=== PATIENT | male | born 1940 | race Caucasian/White ===

== ENCOUNTER → 2024-01-29 10:20 | Outpatient (REF) | payer MEDICARE, SELFPAY ==
[2024-01-29 10:55] LABS: % Basophils 0.8 % (0-2); % Eosinophils 3.5 % (0-6); % Immature Granulocytes 0.2 % (0-0.5); % Monocytes 8.3 % (1.7-9.3); % Neutrophils 50.2 % (42.2-75.2); Absolute Basophils 0.1 10^3/uL (0-0.2); Absolute Eosinophils 0.2 10^3/uL (0-0.7); Absolute Lymphocytes 2.4 10^3/uL (1.2-3.4); Absolute Monocytes 0.5 10^3/uL (0.1-0.6); Absolute Neutrophils 3.2 10^3/uL (1.4-6.5); Hemoglobin 14.8 g/dL (13.0-18.0); Mean Corp Hgb Conc. 32.9 g/dL (33.0-37.0); Mean Corpuscular Hgb 30.8 pg (27.0-31.0); Mean Corpuscular Volume 93.8 fL (80.0-94.0); Mean Platelet Volume 9.4 fL (7.4-10.4); Nucleated Red Blood Cells % 0 % (-); Platelet Count 198 10^3/uL (130-400); Red Cell Dist. Width 13.1 % (11.5-14.5); White Blood Cell Count 6.4 10^3/uL (4.8-10.8)
[2024-01-29 11:32] LABS: ALT (SGPT) 30 U/L (0-50); AST (SGOT) 24 U/L (17-59); Albumin 3.9 g/dl (3.5-5.0); Alkaline Phosphatase 73 U/L (38-126); Blood Urea Nitrogen 16 mg/dl (9-20); Carbon Dioxide 29 mmol/L (22-30); Chloride 105 mmol/L (98-107); Glucose 82 mg/dl (70-99); HDL Cholesterol 50 mg/dl; LDL Cholesterol, Calculated 58 mg/dl; Potassium 4.1 mmol/L (3.5-5.1); Sodium 141 mmol/L (135-145); Total Bilirubin 0.8 mg/dl (0.2-1.3); Total Cholesterol 122 mg/dl (50-199); Total Protein 6.4 g/dl (6.3-8.2); Triglyceride 71 mg/dl (10-149); Very Low Density Lipoprotein 14 mg/dl (0-30); eGFR > 60.00
== END ==
LOC: REG 10:20
PROVIDERS: ATTENDING PHYSICIAN Internal Medicine
DX: I10 Essential (primary) hypertension (principal); K21.9 Gastro-esophageal reflux disease without esophagitis; E78.2 Mixed hyperlipidemia
CPT/HCPCS: 36415; 80053; 80061; 85025

== ENCOUNTER → 2024-11-03 09:47 | Outpatient (REF) | payer MEDICARE, SELFPAY ==
[2024-11-03 10:52] LABS: % Basophils 0.7 % (0-2); % Eosinophils 2.5 % (0-6); % Immature Granulocytes 0.3 % (0-0.5); % Lymphocytes 32.7 % (20.5-51.1); % Monocytes 7.4 % (1.7-9.3); % Neutrophils 56.4 % (42.2-75.2); Absolute Basophils 0.1 10^3/uL (0-0.2); Absolute Eosinophils 0.2 10^3/uL (0-0.7); Absolute Lymphocytes 2.4 10^3/uL (1.2-3.4); Absolute Monocytes 0.6 10^3/uL (0.1-0.6); Absolute Neutrophils 4.2 10^3/uL (1.4-6.5); Hemoglobin 14.8 g/dL (13.0-18.0); Mean Corp Hgb Conc. 32.9 g/dL (33.0-37.0); Mean Corpuscular Hgb 30.8 pg (27.0-31.0); Mean Corpuscular Volume 93.6 fL (80.0-94.0); Mean Platelet Volume 9.3 fL (7.4-10.4); Nucleated Red Blood Cells % 0 % (-); Platelet Count 252 10^3/uL (130-400); Red Blood Cell Count 4.81 10^6/uL (4.70-6.10); Red Cell Dist. Width 13.1 % (11.5-14.5); White Blood Cell Count 7.5 10^3/uL (4.8-10.8)
[2024-11-03 11:23] LABS: ALT (SGPT) 50 U/L (0-50); AST (SGOT) 25 U/L (17-59); Albumin 4.4 g/dl (3.5-5.0); Alkaline Phosphatase 75 U/L (38-126); Blood Urea Nitrogen 21 mg/dl (9-20); Calcium 9.3 mg/dl (8.4-10.2); Carbon Dioxide 30 mmol/L (22-30); Chloride 104 mmol/L (98-107); Glucose 87 mg/dl (70-99); HDL Cholesterol 50 mg/dl; LDL Cholesterol, Calculated 69 mg/dl; Potassium 4.2 mmol/L (3.5-5.1); Sodium 143 mmol/L (135-145); Total Bilirubin 0.8 mg/dl (0.2-1.3); Total Cholesterol 129 mg/dl (50-199); Total Protein 6.7 g/dl (6.3-8.2); Triglyceride 53 mg/dl (10-149); Very Low Density Lipoprotein 10 mg/dl (0-30); eGFR > 60.00
[2024-11-03 11:40] LABS: Vitamin D, 25-OH*** 35.8 ng/mL (30-80)
[2024-11-03 11:57] LABS: Urine Albumin Negative (Neg - Trace); Urine Bilirubin Negative (Negative); Urine Character Clear (Clear); Urine Color Yellow; Urine Glucose Negative (Negative); Urine Ketone Negative (Negative); Urine Leukocyte Negative (Negative); Urine Nitrite Negative (Negative); Urine Occult Blood 1+ (Negative); Urine Urobilinogen Negative (Neg - 1+)
[2024-11-03 12:14] LABS: Urine Bacteria Few (Negative); Urine Red Blood Cell 0-2 /HPF (0-2); Urine Squamous Cell 0-2 /LPF (Few); Urine White Cell 0-2 /HPF (0-5)
[2024-11-04 21:06] LABS: PSA Total 3.9 ng/mL (0.0-4.0)
== END ==
LOC: REG 09:47
PROVIDERS: ATTENDING PHYSICIAN Internal Medicine
DX: Z00.00 Encounter for general adult medical examination without abnormal findings (principal); E78.5 Hyperlipidemia, unspecified; E55.9 Vitamin D deficiency, unspecified; N40.1 Benign prostatic hyperplasia with lower urinary tract symptoms
CPT/HCPCS: 36415; 80053; 80061; 81003; 81015; 82306; 84153; 84154; 85025

== ENCOUNTER → 2024-11-18 14:45 | Outpatient (REF) | payer MEDICARE, SELFPAY ==
[2024-11-18 15:55] LABS: Urine Albumin 2+ (Neg - Trace); Urine Bilirubin Negative (Negative); Urine Character Clear (Clear); Urine Color Yellow; Urine Glucose Negative (Negative); Urine Ketone Negative (Negative); Urine Leukocyte 1+ (Negative); Urine Nitrite Negative (Negative); Urine Occult Blood 2+ (Negative); Urine Specific Gravity 1.025 (<1.030); Urine Urobilinogen Negative (Neg - 1+)
[2024-11-18 16:02] LABS: Urine Squamous Cell 0-2 /LPF (Few)
[2024-11-18 16:03] LABS: Urine Mucus Many
[2024-11-18 16:04] LABS: Urine Bacteria Moderate (Negative); Urine White Cell 0-2 /HPF (0-5)
[2024-11-18 16:10] LABS: % Basophils 0.3 % (0-2); % Eosinophils 1.4 % (0-6); % Immature Granulocytes 0.4 % (0-0.5); % Lymphocytes 21.6 % (20.5-51.1); % Monocytes 8.6 % (1.7-9.3); % Neutrophils 67.7 % (42.2-75.2); Absolute Eosinophils 0.2 10^3/uL (0-0.7); Absolute Immature Granulocytes 0.1 10^3/uL (0-0.05); Absolute Lymphocytes 2.5 10^3/uL (1.2-3.4); Absolute Neutrophils 7.9 10^3/uL (1.4-6.5); Hematocrit 42.8 % (39.0-52.0); Hemoglobin 14.3 g/dL (13.0-18.0); Mean Corp Hgb Conc. 33.4 g/dL (33.0-37.0); Mean Corpuscular Hgb 31.5 pg (27.0-31.0); Mean Corpuscular Volume 94.3 fL (80.0-94.0); Mean Platelet Volume 9.9 fL (7.4-10.4); Nucleated Red Blood Cells % 0 % (-); Platelet Count 217 10^3/uL (130-400); Red Blood Cell Count 4.54 10^6/uL (4.70-6.10); Red Cell Dist. Width 13.5 % (11.5-14.5); White Blood Cell Count 11.7 10^3/uL (4.8-10.8)
[2024-11-18 16:14] LABS: ALT (SGPT) 26 U/L (0-50); AST (SGOT) 19 U/L (17-59); Albumin 4.1 g/dl (3.5-5.0); Alkaline Phosphatase 82 U/L (38-126); Blood Urea Nitrogen 18 mg/dl (9-20); Calcium 9.2 mg/dl (8.4-10.2); Carbon Dioxide 30 mmol/L (22-30); Chloride 100 mmol/L (98-107); Glucose 123 mg/dl (70-99); Potassium 3.9 mmol/L (3.5-5.1); Sodium 141 mmol/L (135-145); Total Bilirubin 1.1 mg/dl (0.2-1.3); Total Protein 6.7 g/dl (6.3-8.2); eGFR > 60.00
== END ==
LOC: REG 14:45
PROVIDERS: ATTENDING PHYSICIAN Nurse Practitioner Family; FAMILY PHYSICIAN Internal Medicine
DX: R10.32 Left lower quadrant pain (principal)
CPT/HCPCS: 36415; 80053; 81003; 81015; 85025; 87086

== ENCOUNTER → 2024-11-20 10:26 | Outpatient (REF) | payer MEDICARE, SELFPAY ==
[2024-11-20 11:30] LABS: % Basophils 0.7 % (0-2); % Eosinophils 4.3 % (0-6); % Immature Granulocytes 0.3 % (0-0.5); % Lymphocytes 24.9 % (20.5-51.1); % Monocytes 8.2 % (1.7-9.3); % Neutrophils 61.6 % (42.2-75.2); Absolute Basophils 0.1 10^3/uL (0-0.2); Absolute Eosinophils 0.3 10^3/uL (0-0.7); Absolute Lymphocytes 1.8 10^3/uL (1.2-3.4); Absolute Monocytes 0.6 10^3/uL (0.1-0.6); Absolute Neutrophils 4.5 10^3/uL (1.4-6.5); Hematocrit 43.3 % (39.0-52.0); Hemoglobin 14.3 g/dL (13.0-18.0); Mean Corpuscular Hgb 30.7 pg (27.0-31.0); Mean Corpuscular Volume 92.9 fL (80.0-94.0); Mean Platelet Volume 9.3 fL (7.4-10.4); Nucleated Red Blood Cells % 0 % (-); Platelet Count 235 10^3/uL (130-400); Red Blood Cell Count 4.66 10^6/uL (4.70-6.10); Red Cell Dist. Width 13.2 % (11.5-14.5); White Blood Cell Count 7.2 10^3/uL (4.8-10.8)
[2024-11-20 11:54] LABS: Blood Urea Nitrogen 17 mg/dl (9-20); Calcium 9.6 mg/dl (8.4-10.2); Carbon Dioxide 31 mmol/L (22-30); Chloride 105 mmol/L (98-107); Glucose 87 mg/dl (70-99); Potassium 4.6 mmol/L (3.5-5.1); Sodium 143 mmol/L (135-145); eGFR > 60.00
== END ==
LOC: REG 10:26
PROVIDERS: ATTENDING PHYSICIAN Nurse Practitioner Family; FAMILY PHYSICIAN Internal Medicine
DX: R10.32 Left lower quadrant pain (principal); Z87.19 Personal history of other diseases of the digestive system
CPT/HCPCS: 36415; 80048; 85025

== ENCOUNTER → 2024-11-24 15:34 | Outpatient (REF) | payer MEDICARE, SELFPAY | LOC: RAD 15:34 | PROVIDERS: ATTENDING PHYSICIAN Nurse Practitioner Family; FAMILY PHYSICIAN Internal Medicine | DX: R10.32 Left lower quadrant pain (principal); Z87.19 Personal history of other diseases of the digestive system | CPT/HCPCS: 74177; Q9967 ==

== ENCOUNTER → 2024-12-10 16:45 | Outpatient (REF) | payer MEDICARE, SELFPAY | LOC: RAD 16:45 | PROVIDERS: ATTENDING PHYSICIAN Nurse Practitioner Family; FAMILY PHYSICIAN Internal Medicine | DX: K57.92 Diverticulitis of intestine, part unspecified, without perforation or abscess without bleeding (principal) | CPT/HCPCS: 74177; Q9967 ==

== ENCOUNTER → 2024-12-12 08:56 | Outpatient (REF) | payer MEDICARE, SELFPAY ==
[2024-12-12 10:51] LABS: % Basophils 0.9 % (0-2); % Eosinophils 5.7 % (0-6); % Immature Granulocytes 0.3 % (0-0.5); % Lymphocytes 33.5 % (20.5-51.1); % Monocytes 7.1 % (1.7-9.3); % Neutrophils 52.5 % (42.2-75.2); Absolute Basophils 0.1 10^3/uL (0-0.2); Absolute Eosinophils 0.4 10^3/uL (0-0.7); Absolute Lymphocytes 2.3 10^3/uL (1.2-3.4); Absolute Monocytes 0.5 10^3/uL (0.1-0.6); Absolute Neutrophils 3.6 10^3/uL (1.4-6.5); Hematocrit 43.2 % (39.0-52.0); Hemoglobin 14.3 g/dL (13.0-18.0); Mean Corp Hgb Conc. 33.1 g/dL (33.0-37.0); Mean Corpuscular Hgb 30.8 pg (27.0-31.0); Mean Corpuscular Volume 93.1 fL (80.0-94.0); Mean Platelet Volume 9.9 fL (7.4-10.4); Nucleated Red Blood Cells % 0 % (-); Platelet Count 234 10^3/uL (130-400); Red Blood Cell Count 4.64 10^6/uL (4.70-6.10); Red Cell Dist. Width 13.2 % (11.5-14.5); White Blood Cell Count 6.9 10^3/uL (4.8-10.8)
[2024-12-12 11:13] LABS: ALT (SGPT) 18 U/L (0-50); AST (SGOT) 18 U/L (17-59); Alkaline Phosphatase 77 U/L (38-126); Blood Urea Nitrogen 18 mg/dl (9-20); Calcium 8.8 mg/dl (8.4-10.2); Carbon Dioxide 30 mmol/L (22-30); Chloride 103 mmol/L (98-107); Glucose 78 mg/dl (70-99); Potassium 3.9 mmol/L (3.5-5.1); Sodium 143 mmol/L (135-145); Total Bilirubin 0.9 mg/dl (0.2-1.3); Total Protein 6.6 g/dl (6.3-8.2); eGFR > 60.00
== END ==
LOC: REG 08:56
PROVIDERS: ATTENDING PHYSICIAN Nurse Practitioner Family
DX: K57.32 Diverticulitis of large intestine without perforation or abscess without bleeding (principal)
CPT/HCPCS: 36415; 80053; 85025

== ENCOUNTER 2024-12-14 16:42 | Inpatient (IN) | payer MEDICARE, SELFPAY ==
[2024-12-14 11:56] LABS: % Basophils 0.7 % (0-2); % Eosinophils 4.9 % (0-6); % Immature Granulocytes 0.4 % (0-0.5); % Lymphocytes 24.1 % (20.5-51.1); % Monocytes 10.3 % (1.7-9.3); % Neutrophils 59.6 % (42.2-75.2); Absolute Basophils 0.1 10^3/uL (0-0.2); Absolute Eosinophils 0.4 10^3/uL (0-0.7); Absolute Lymphocytes 1.7 10^3/uL (1.2-3.4); Absolute Monocytes 0.7 10^3/uL (0.1-0.6); Absolute Neutrophils 4.2 10^3/uL (1.4-6.5); Hematocrit 41.8 % (39.0-52.0); Hemoglobin 14.2 g/dL (13.0-18.0); Mean Corpuscular Hgb 31.6 pg (27.0-31.0); Mean Corpuscular Volume 92.9 fL (80.0-94.0); Mean Platelet Volume 9.5 fL (7.4-10.4); Nucleated Red Blood Cells % 0 % (-); Platelet Count 227 10^3/uL (130-400); Red Cell Dist. Width 13.1 % (11.5-14.5); White Blood Cell Count 7.1 10^3/uL (4.8-10.8)
[2024-12-14 11:59] LABS: ALT (SGPT) 19 U/L (0-50); AST (SGOT) 21 U/L (17-59); Albumin 4.1 g/dl (3.5-5.0); Alkaline Phosphatase 66 U/L (38-126); Blood Urea Nitrogen 12 mg/dl (9-20); Carbon Dioxide 27 mmol/L (22-30); Chloride 105 mmol/L (98-107); Glucose 84 mg/dl (70-99); Potassium 4.3 mmol/L (3.5-5.1); Sodium 142 mmol/L (135-145); Total Bilirubin 0.7 mg/dl (0.2-1.3); Total Protein 6.5 g/dl (6.3-8.2); eGFR > 60.00
[2024-12-14 12:19] LABS: Lipase 85 U/L (23-300)
[2024-12-14 14:50] VITALS: BP 152/59; BMI 26.2
--- NOTE | 2024-12-14 15:19 | ED.GENMED ---
History of Present Illness
General
Chief Complaint: Abdominal Symptoms
Source: patient and spouse
Exam Limitations: none
Time Seen by Provider: 12/14/24 15:06
Nursing documentation reviewed up to this point in time: agreed with
History of Present Illness
History of Present Illness:
The patient is a pleasant 84-year-old man who was sent in by his primary care doctor for persistent acute diverticulitis despite finishing a full course of Augmentin. 3 days ago, patient underwent a CT which showed acute diverticulitis of his
sigmoid colon and he was started on Flagyl and Bactrim. Patient reports that soon after starting the Flagyl and Bactrim, he developed swelling and redness and burning at the tip of his penis. His primary care doctor was concerned that he may be
having a reaction to Flagyl and Bactrim and encouraged him to come to the emergency department for admission for IV antibiotics. Patient denies fever and vomiting. He reports mild lower abdominal pressure. He reports that his last dose of Bactrim
and Flagyl were last night. He reports that the tip of his penis is still burning and uncomfortable but better than yesterday. Patient reports the last time he had acute diverticulitis was 30 years ago.
Past History
Past History
ED Past Medical History: HTN, Hypercholesterolemia, Psychiatric (Anxiety) and Other
ED Past Surgical History: Other (Cosmetic facial surgery)
Social History
Tobacco: Non-smoker
Alcohol: Occasional
Drug: None
Personal: Partner
Living: with family
Employment: Other
Family History
Family History: Other (Noncontributory); Negative Early CAD or CAD
Review of Systems
Review of Systems
Allergies reviewed?: Yes
All Other Systems: ROS reviewed and negative except as documented in HPI and ROS
Constitutional: Reports no symptoms
EENT: Reports no symptoms
Respiratory: Reports no symptoms
Cardiac: Reports no symptoms
ABD/GI: Reports abdominal pain
: Reports other (Burning, redness and swelling at tip of penis)
Musculoskeletal: Reports no symptoms
Skin: Reports no symptoms
Neurological: Reports no symptoms
Endocrine: Reports no symptoms
Hematologic/Lymphatic: Reports no symptoms
Psychiatric: Reports no symptoms
Phy Exam
Physical Exam
Physical Exam:
Physical Exam
General: no apparent distress, not acutely ill
Neck: supple. no meningeal signs. normal psoterior pharynx
Heart: s1/s2 regular rate and rhythm, no murmur. equal radial and femoral pulses bilaterally
Lungs: no acute respiratory distress. clear bilaterally
Abdomen: normal bowel sounds. Lower abdominal tenderness. No rebound or guarding. No pulsatile mass.
Neuro: alert and oriented. no focal neurological deficits
Skin: no rash
Psychiatric: well kept. interactive and cooperative
Extremities: no edema. no calf tenderness. negative homans. good distal pulses
Course
Orders/Labs/Results
Orders:
Orders
12/14/24 11:33
Complete Blood Count/With Diff Urgent
Comprehensive Metabolic Panel Urgent
Lipase Urgent
12/14/24 15:26
Zosyn 4.5 grams IVPB NOW Piperacillin/Tazo 4.5 Gram [Zosyn] 4.5 gram in 100 ml IV NOW
Abnormal Lab Results
12/14/24
11:33
RBC 4.50 L 10^6/uL
(4.70-6.10)
MCH 31.6 H pg
(27.0-31.0)
Absolute Monos (auto) 0.7 H 10^3/uL
(0.1-0.6)
Monocytes % 10.3 H %
(1.7-9.3)
12/14/24 11:33
12/14/24 11:33
Vital Signs
Initial and Last Documented VS:
Initial Vital Signs
Temp Pulse Resp Pulse Ox
98.2 F 77 16 98
12/14/24 11:24 12/14/24 11:24 12/14/24 11:24 12/14/24 11:24
Last Documented Vital Signs
Temp Pulse Resp BP Pulse Ox
98.2 F 77 15 152/59 98
12/14/24 11:24 12/14/24 14:50 12/14/24 14:50 12/14/24 14:50 12/14/24 11:24
MDM/Problems Addressed
Differential Diagnosis Includes:
Acute persistent diverticulitis, candidiasis of penis, acute balanitis
MDM/Problems Addressed:
Patient presents with persistent acute lower abdominal pain diagnosed as acute diverticulitis on recent CT as well as acute redness and irritation of tip of penis
Chronic conditions affecting care: HTN
Acute Exacerbation and/or Progression of Chronic Illness:
Patient is hypertensive, likely due to discomfort and anxiety being in the ED. There is no sign of stroke or CHF
Acute Exacerbation and/or Progression of Chronic Illness: HTN
*Radiology
Radiology exam reviewed: radiology read reviewed (CT image reviewes from 12/10/2024)
*Pulse Oximetry
Patient hypoxic: no
*EKG
Interpreted by ED Provider?: NA
*Sales And Marketing Executive Interpretation
Rate: Sales And Marketing Executive- N/A
*Critical Care Note
Total Time (30-74mins, 75-104mins- exclusive of procedures): Not Applicable
Data Reviewed
Review of Other/Old Records Reveals: Radiology Studies (CT report reviewed from 4 days ago which showed acute diverticulitis of sigmoid colon)
Source: patient and spouse
Patient Management
Social determinants of health affecting care: Living situation and Strong social support
Discussion with other providers: Hospitalist and Other (I discussed choice of Zosyn with infectious disease on-call who agreed that that was a good choice)
Escalation/DeEscalation of care consider admission/obs:
Patient will be admitted for persistent acute diverticulitis as well as acute balanitis
ED Attending Note
-
Portions of this chart may have been created with voice recognition software.� Occasional wrong word or��sound alike� substitutions may have occurred due to the inherent limitations of voice recognition software.
Discharge Plan
Departure
Patient Disposition: Admit
Date of Disposition: 12/14/24
Time of Disposition: 15:23
Admit to: Med/Surg
Presentation/result/management discussed w/ accepting MD/DO: Hospitalist
Patient with high blood pressure during this ER visit?: Yes
Condition: Good
Covid-19: Not Applicable
Discharge Problem:
Acute sigmoid diverticulitis, Acute balanitis
Prescriptions:
No Action
atorvastatin 10 MG tablet
40 mg PO DAILY
escitalopram oxalate 20 mg Tablet
20 mg PO DAILY
losartan 50 mg Tablet
50 mg PO DAILY
alprazolam 0.25 mg Tablet
0.125 mg PO DAILYPRN PRN (Reason: anxiety)
finasteride 5 mg Tablet
5 mg PO .2 TIMES A WEEK
alfuzosin 10 mg Tablet Extended Release 24 Hr
10 mg PO DAILY
oxycodone 5 mg tablet
5 mg PO Q6H PRN (Reason: moderate-severe pain) Qty: 30 0RF
Rx Instructions:
1 tab for moderate pain, 2 if severe.
Dx total joint.
celecoxib [Celebrex] 200 mg capsule
200 mg PO DAILY Qty: 30 0RF
Rx Instructions:
Take with food.
DO NOT take within 2 hours of Aspirin post-surgery.
dexamethasone 4 mg tablet
4 mg PO BID Qty: 7 0RF
Rx Instructions:
Start night of discharge and take twice a day until finished.
Take with food.
prochlorperazine maleate [Compazine] 5 mg tablet
5 mg PO Q8H PRN (Reason: nausea and vomiting) Qty: 20 0RF
famotidine [Pepcid] 20 mg tablet
20 mg PO HS Qty: 30 0RF
Rx Instructions:
Take nightly while on Celebrex and Aspirin to avoid GI upset.
mupirocin 2 % ointment
1 applic intranasal BID Qty: 1 0RF
Advil PM 200-38 mg Tablet
1 cap PO HS PRN (Reason: pain/insomnia)
clobetasol 0.05 % Cream
1 applic TOPICAL BID
sennosides [Senokot] 8.6 mg tablet
17.2 mg PO BID Qty: 2 0RF
aspirin 325 mg tablet
325 mg PO DAILY Qty: 1 0RF
Rx Instructions:
Take with food
magnesium hydroxide [Milk of Magnesia] 400 mg/5 mL suspension
30 ml PO HS PRN (Reason: Constipation) Qty: 1 0RF
docusate sodium [Colace] 100 mg capsule
100 mg PO BID Qty: 1 0RF
acetaminophen [Acetaminophen Extra Strength] 500 mg Tablet
1,000 mg PO QID Qty: 0 0RF
aspirin [Cierra Chewable Aspirin] 81 mg tablet,chewable
81 mg PO DAILY Qty: 1 0RF
Rx Instructions:
begin this in one month whenfull dose aspirin is d/c--evidence of cerebrovascular disease on Brain MRI 2021
Interventions
Interventions:
*Risk Screen - Suicide Last Done: 12/14/24 11:24
*General Assessment Last Done: 12/14/24 14:51
*Neglect/Abuse Screening Last Done: 12/14/24 11:24
*ED- Fall Risk Assessment Last Done: 12/14/24 14:51
*ED COVID-19 Vaccine History Last Done: 12/14/24 14:51
Discharge Date and Time
Print Language: ZAMBIAN
--- NOTE | 2024-12-14 15:23 | HPS.HSE ---
Family Physician
-
Family Physician:
Chief Complaint
-
lower abdominal pain
History of Present Illness
84-year-old with past medical history of depression anxiety, hyperlipidemia, BPH, hypertension presented to us with lower abdominal pain/pressure for [address] of abdomen pelvis on 416 with impression of mild acute
diverticulitis of the distal descending colon. Patient was started on Augmentin which she took for 2 weeks with no improvement in symptoms. CT abdomen pelvis was repeated on 12/10 with impression of findings consistent with acute sigmoid
diverticulitis. Patient was started on Bactrim and Flagyl which she is taking for past 2 days. Today he noticed his penis was swollen and red. Patient was sent in by his PCP for IV antibiotics. Patient denied any fever, chills, chest pain, short
of breath. Patient denied nausea vomiting diarrhea. Patient denied any headache, dizzy or syncope. Patient denied dysuria hematuria.
Patient was started on Zosyn and admitting for further management
Medical History
Past Medical History
Past Medical History: Reports Other
Additional Past Medical History:
Anxiety and depression, external hemorrhoids, colon polyps, diverticulosis, fatty liver, psoriasis, hypertension, arthritis, hyperlipidemia, BPH, [place] fraction
Past Surgical History: Reports Other
Additional Past Surgical History:
Facelift, cyst on spine removed, left hand middle finger trigger release, left shoulder replacement
Social History
Tobacco: Non-smoker
Alcohol: None
Drug: None
Personal: Partner
Living: With Family
Family History
Family History: Not pertinent
Allergies / Home Medications
Allergies reflects when Allergies were last updated in [employer].
Home Medications with original date entered in [employer]
Allergy/Medication List:
Allergies
Allergy/AdvReac Type Severity Reaction Status Date / Time
ciprofloxacin [From Cipro] Allergy Rash Verified 12/14/24 11:28
Home Medications
alprazolam 0.25 mg tablet 0.25 mg PO DAILYPRN PRN anxiety 04/04/23
finasteride 5 mg tablet 5 mg PO MOTH 04/04/23
aspirin 81 mg chewable tablet (Cierra Chewable Low Dose Aspirin) 81 mg PO QPM stroke prevention 12/14/24
atorvastatin 40 mg tablet (Lipitor) 40 mg PO DAILY 12/14/24
escitalopram oxalate 10 mg tablet (Lexapro) 10 mg PO DAILY 12/14/24
metronidazole 500 mg tablet 500 mg PO Q8H 12/14/24
sulfamethoxazole 800 mg-trimethoprim 160 mg tablet (Bactrim DS) 1 tab PO BID 12/14/24
Review of Systems
-
Constitutional: Reports No Symptoms
EENT: Reports No Symptoms
Respiratory: Reports No Symptoms
Cardiac: Reports No Symptoms
Abdomen/GI: Reports Abdominal Pain
: Reports No Symptoms
Musculoskeletal: Reports No Symptoms
Skin: Reports Other
Neurological: Reports No Symptoms
Endocrine: Reports No Symptoms
Hematologic/Lymphatic: Reports No Symptoms
Psych: Reports No Symptoms
Physical Exam
Vital Signs
Vital Signs
Temp Pulse Resp BP Pulse Ox
98.2 F 77 15 152/59 98
12/14/24 11:24 12/14/24 14:50 12/14/24 14:50 12/14/24 14:50 12/14/24 11:24
Physical Exam
General: Well Developed, Well Nourished and No Apparent Distress
HEENT: NormoCephalic, Moist mucous membranes and Atraumatic
Respiratory: Clear
Cardiac: S1/S2 and Regular Rhythm; No Murmur or Rub
GI: Soft, Non Tender, Non Distended and Normal Bowel Sounds; No Organomegaly
Rectal: Deferred by Provider
Genito-urinary: Other (red and swollen penis)
Musculoskeletal: No Clubbing, No Cyanosis and Other
Skin: No Rash
Neuro: AO x 3 and Nonfocal/grossly intact
Psych: Calm
Laboratory Results
-
12/14/24 11:33
12/14/24:
Laboratory Results
Total Bilirubin 0.7 mg/dl (0.2-1.3) 12/14/24 11:
AST 21 U/L (17-59) 12/14/24 11:
ALT 19 U/L (0-50) 12/14/24:
Alkaline Phosphatase 66 U/L (38-126) 12/14/24:
Lipase 85 U/L (23-300) 12/14/24 11:
Data Reviewed
-
CT Scan: Report Reviewed by me
Lab Data: Labs Reviewed by me
Impression/Plan
-
# Acute diverticulitis
- Failed outpatient oral antibiotics
- IV Zosyn continued
- Keep patient on full liquid diet
- IV Dilaudid as needed for pain
- ID consulted
-CT 11/24 with Evidence for mild acute diverticulitis of the distal descending colon. No evidence for abscess. Follow-up CT or endoscopy after appropriate therapy recommended to exclude underlying neoplasmFatty infiltration of liver
-CT indings consistent with acute sigmoid diverticulitis. Inflamed diverticulum within the sigmoid colon in the left lower quadrant. Pronounced adjacent mesenteric inflammatory change, more pronounced compared to prior CT. There is no
extraluminal air, and no associated abscess.
2. Small fat-containing left inguinal hernia without evidence of incarceration.
# Swelling and redness to his penis likely balanitis
-clotrimazole added
# Anxiety/depression
- Escitalopram continued
- Xanax as needed
# Hyperlipidemia
- Statin continued
# BPH
- Finasteride continued
# DVT prophylaxis
- Lovenox subcu
#CODE STATUS
- Full code
--- NOTE | 2024-12-14 15:52 | W.PN.UPDATE ---
Update Note
Progress Note Update
This is an addendum to the H&P written by Diamond Lima on 12/14/2024.� Patient seen examined independently with SOLDERING MACHINE FEEDER.
84-year-old male past medical history of osteoarthritis, hypertension, hypercholesteremia, chronic lacunar infarct of right thalamus, GERD, gastric, colon polyps, diverticulosis, nephrolithiasis, left renal cyst, mild cognitive impairment, BPH,
eczema, anxiety/depression, prediabetes, presenting with diverticulitis and redness and swelling of the penis.
He was sent in here from his primary care physician office for acute diverticulitis that did not respond to course of Augmentin.� He was switched 3 days ago to Bactrim and Flagyl but then developed swelling and redness of his penis and primary was
concerned he was getting a reaction to the antibiotics.
Vital signs normal.� CT abdomen pelvis from 12/10 shows acute sigmoid diverticulitis.� Inflamed diverticulum within the sigmoid colon in the left lower quadrant.� Pronounced adjacent mesenteric inflammatory change.
On examination he has redness and swelling of the head of penis.�
Patient with persistent acute sigmoid diverticulitis without significant symptoms.
Zosyn started. full liquid diet.� ID consulted.� Patient with balanitis of the head of the penis secondary to recent antibiotics and description of natural shirlene.� Topical clotrimazole.
[2024-12-14] MEDS: ZOSYN 100 IV (16:30)
[2024-12-14 16:49] LABS: Urine Albumin Negative (Neg - Trace); Urine Bilirubin Negative (Negative); Urine Character Clear (Clear); Urine Color Yellow; Urine Glucose Negative (Negative); Urine Ketone Negative (Negative); Urine Leukocyte 1+ (Negative); Urine Nitrite Negative (Negative); Urine Occult Blood 1+ (Negative); Urine Specific Gravity 1.015 (<1.030); Urine Urobilinogen Negative (Neg - 1+)
[2024-12-14 17:14] LABS: Urine Bacteria Few (Negative)
[2024-12-14 19:46] VITALS: BMI 27.1
[2024-12-14 19:50] VITALS: BP 143/59
[2024-12-14] MEDS: LOW STRENGTH ASPIRIN 81 MG PO (20:53)
[2024-12-14] MEDS: LOVENOX 40 MG SC (20:53)
[2024-12-14] MEDS: LOTRIMIN 1% CREAM 1 APPLIC TOPICAL (20:55)
[2024-12-14] MEDS: PROSCAR 5 MG PO (21:00)
[2024-12-14] MEDS: ZOSYN 50 IV (21:00)
[2024-12-14] MEDS: DILAUDID 0.5 MG IV (22:30)
[2024-12-14 23:08] VITALS: BP 147/68
[2024-12-15] MEDS: MELATONIN 10 MG PO (01:35)
[2024-12-15] MEDS: DILAUDID 0.5 MG IV (02:54)
[2024-12-15] MEDS: ZOSYN 50 IV ×3 (03:03→16:07)
--- NOTE | 2024-12-15 03:33 | PTCARENOTE ---
Pt reports increased penile pain after applying ordered cream. Tip of penis red and irritated. pt reports pain /. PRN pain medication administered as ordered. Pt unable to sleep. No other issues at this time. WIll continue to monitor.
[2024-12-15 08:02] VITALS: BP 130/65
[2024-12-15] MEDS: LOTRIMIN 1% CREAM TOPICAL ×2 (08:06→20:24)
[2024-12-15] MEDS: LEXAPRO 10 MG PO (08:06)
[2024-12-15] MEDS: LIPITOR 40 MG PO (08:06)
--- NOTE | 2024-12-15 10:37 | W.PN.HOSP.TC ---
Today's Communication/Plan
-
See plan
Assessment / Plan
Assessment / Plan
Impression:
Sigmoid diverticulitis, recurrent
Balanitis
Other conditions:
History of diverticulosis with sessile polyp
Hypertension.
Dyslipidemia.
Chronic lacunar infarct of the right thalamus.
GERD.
Nephrolithiasis
Plan:
Recurrent diverticulitis.
Persistent symptoms through 2 courses of antibiotic as outpatient.
Afebrile with no evidence of systemic infection.
Mild diffuse lower quadrant tenderness on abdominal exam.
Normal white count
CT with sigmoid diverticulitis, pronounced adjacent mesenteric inflammatory change, more pronounced with prior CT. There is no extraluminal air and abscess.
Antibiotics broadened to Zosyn
Full liquid diet
Last colonoscopy 2016 findings consistent with diverticulosis and removed sessile polyps
Given recurrent event, will need outpatient follow-up with colonoscopy/colorectal surgery.
Balanitis.
Suspect due to prolonged antibiotic therapy.
Check hemoglobin A1c
Empiric clotrimazole
Benadryl
Anticipated Discharge: 24 - 48 hours
Subjective/Interval History
-
Date of Service: December 15, 2024
Objective Data
-
Vital Signs:
Vital Signs
Temp Pulse Resp BP Pulse Ox
98.3 F 79 18 130/65 95
12/15/24 08:02 12/15/24 08:02 12/15/24 08:02 12/15/24 08:02 12/15/24 08:02
I&O
12/14/24 12/15/24 12/16/24
06:59 06:59 06:59
Intake Total 100 / 100 540 / 540
Balance 100 / 100 540 / 540
Physical Exam
-
General: Well Developed and No Apparent Distress
HEENT: Normocephalic, Atraumatic and Moist Mucous Membranes
Respiratory: Clear to Auscultation
Cardiac: Regular Rhythm and S1/S2; Negative Murmur, Rub or Gallop
GI: Soft, Nontender, Nondistended and Normal Bowel Sounds; Negative Organomegaly
Rectal: Deferred by Provider
Musculoskeletal: No Clubbing, No Cyanosis and No Edema
Skin: Negative Rash
Neuro: Nonfocal/Grossly Intact
[2024-12-15] MEDS: BENADRYL 25 MG PO ×2 (10:42→21:03)
--- NOTE | 2024-12-15 10:54 | CM ---
Patient seen bedside.
IA completed.
Patient lives with significant other in a 2 story home with 3 steps to enter.
Patient independent prior to admission, drives, no assistive devices.
patient has not been to skilled rehab, patient has not had VN.
Discussed CM availability should needs arise.
IMM reviewed and signed.
Patient PMD: Dr Lu, or GUN MECHANIC Laquita Epperson
Pharmacy: [facility]
Plan: home no needs anticipated.
--- NOTE | 2024-12-15 12:01 | CON.ID ---
Consultation
-
Date/Time Consultation Requested: 12/14/24 19:48
Date/Time Consultation Performed: 12/15/24 12:02
Requesting Provider: Ping Lima NP
Performing Provider: Dr Ramos
Reason for Consultation: complicated diverticulitis
Chief Complaint / Past History
Chief Complaint
abdominal pain
History of Present Illness
Mr Morgan is an 84 year old male with history of diverticulitis x1 who was first diagnosed with mild acute diverticulitis of the descending colon without abscess by CT on 11/24, she was managed outpatient with a course of augmentin x2 weeks which he
completed however abdominal pain was ongoing throughout the course without improvement. He was then started on bactrim and metronidazole and he was referred here for repeat CT a/p 12/10 which showed acute sigmoid diverticulitis without abscess. He
has a history of rash with ciprofloxacin. He developed redenss and swelling of the glans penis and was referred to the ER with concern for possible adverse drug reaction. No lip or tongue swelling, He has been applying the clotrimazole and there is
minimal erythema at this point. There is a small very superifical ulcer on the glans
Since arrival here he has been afebrile, bp stable, wbc 7.1, hgb 14.2, plt 227, no L shift, cr 0.9, normal LFTs, patient is currently on zosyn, ID is consulted for assistance with management. He was started on clotrimazole for the balanitis. But
has notice excessive burning with the application.
Past History
Additional Past Medical History:
Anxiety and depression, external hemorrhoids, colon polyps, diverticulosis, fatty liver, psoriasis, hypertension, arthritis, hyperlipidemia, BPH
Additional Past Surgical History:
Facelift, cyst on spine removed, left hand middle finger trigger release, left shoulder replacement
Allergy History:
ciprofloxacin [From Cipro] Allergy (Verified 12/14/24 11:28)
Rash
Medications Reviewed: Yes
Social History
Tobacco: Non-Smoker
Alcohol: None
Drug: None
Family History
Family History: Not Pertinent
Review of Systems
Review of Systems
General: Negative Fever or Chills
All systems: All other systems were reviewed and were negative
Vital Signs
Temp Pulse Resp BP Pulse Ox
98.3 F 79 18 130/65 95
12/15/24 08:02 12/15/24 08:02 12/15/24 08:02 12/15/24 08:02 12/15/24 10:49
Physical Exam
Physical Exam
Constitutional: No Acute Distress
Cardiovascular: Regular Rate and S1/S2; Negative Murmur or Rub
Pulmonary: Clear and Symmetric; Negative Wheezes, Rales or Rhonchi
Gastrointestinal: Soft, Non Tender, Non Distended and Normal Bowel Sounds
Genito-Urinary: Other (uncircumcised, mild pinkness of the glans, superficial ulceration on the dorsal aspect)
Skin: Warm and Dry; Negative Rash or Jaundice
Lab / Diagnostic Study Results
12/14/24 11:33
12/14/24 11:33
Abs Immat Gran (auto) 0.0 10^3/uL (0-0.05) 12/14/24 11:33
Absolute Neuts (auto) 4.2 10^3/uL (1.4-6.5) 12/14/24 11:33
Absolute Lymphs (auto) 1.7 10^3/uL (1.2-3.4) 12/14/24 11:33
Absolute Monos (auto) 0.7 10^3/uL (0.1-0.6) H 12/14/24 11:33
Absolute Basos (auto) 0.1 10^3/uL (0-0.2) 12/14/24 11:33
Immature Gran % 0.4 % (0-0.5) 12/14/24 11:33
Neutrophils % 59.6 % (42.2-75.2) 12/14/24 11:33
Lymphocytes % 24.1 % (20.5-51.1) 12/14/24 11:33
Monocytes % 10.3 % (1.7-9.3) H 12/14/24 11:33
Eosinophils % 4.9 % (0-6) 12/14/24 11:33
Basophils % 0.7 % (0-2) 12/14/24 11:33
Urine WBC 6-10 /HPF (0-5) A 12/14/24 16:31
Ur Squamous Epith Cells 3-5 /LPF (Few) 12/14/24 16:31
Assessment / Plan
Diverticulitis
Balanitis
Reported rash with ciprofloxacin
- this is patients first episode in my opinion with incomplete resolution of the symptoms from 11/24 on augmentin
- CT 12/10 no evidence of abscess
- agree with assessment of likely balanitis
- check QTc 450 on lexapro
- quinolones are unique in that rash with one doesn't reliably predict rash with others within the class
- trial of levaquin/metro/fluconazole tentatively x2 weeks
- recheck qtc in the AM
- if no improvement by saturday, I would like him to contact my office and then we would switch to IV therapy - he expressed understanding and agreement
[2024-12-15 15:37] VITALS: BP 129/57
[2024-12-15] MEDS: DIFLUCAN 400 MG PO (16:51)
[2024-12-15] MEDS: LEVAQUIN 750 MG PO (16:51)
[2024-12-15] MEDS: LOVENOX 40 MG SC (17:32)
[2024-12-15] MEDS: LOW STRENGTH ASPIRIN 81 MG PO (17:32)
[2024-12-15] MEDS: FLAGYL 500 MG PO (20:47)
[2024-12-15 23:10] VITALS: BP 122/69
[2024-12-16 07:38] VITALS: BP 145/65
[2024-12-16 08:55] LABS: Glycohemoglobin (HgbA1c) 5.5 % (4.0-5.6)
--- NOTE | 2024-12-16 10:13 | CM ---
Patient seen bedside with SO.
patient hoping for d/c home today.
Denies home care needs.
Plan: home, no needs.
[2024-12-16] MEDS: LEVAQUIN 750 MG PO (10:44)
[2024-12-16] MEDS: DIFLUCAN 400 MG PO (10:44)
[2024-12-16] MEDS: FLAGYL 500 MG PO (10:44)
[2024-12-16] MEDS: LIPITOR 40 MG PO (10:45)
[2024-12-16] MEDS: LEXAPRO 10 MG PO (10:45)
--- NOTE | 2024-12-16 11:53 | W.DS.TRANS ---
DC Summary - Redevelopment Specialist
-
Discharge Instructions:
Discharge Diagnosis/Procedures Sigmoid diverticulitis
Balanitis
Diet Low Residue
Instructions:
Stand-Alone Forms:
Changes to Home Medications: Yes
Discharge Medications:
DC Medications w/original date entered in [employer]
alprazolam 0.25 mg tablet 0.25 mg PO DAILYPRN PRN anxiety 04/04/23
finasteride 5 mg tablet 5 mg PO MOTH 04/04/23
aspirin 81 mg chewable tablet (Cierra Chewable Low Dose Aspirin) 81 mg PO QPM stroke prevention 12/14/24
atorvastatin 40 mg tablet (Lipitor) 40 mg PO DAILY 12/14/24
escitalopram oxalate 10 mg tablet (Lexapro) 10 mg PO DAILY 12/14/24
melatonin 10 mg tablet 10 mg PO HS PRN Insomnia 12/15/24
fluconazole 200 mg tablet 400 mg (2 x 200 mg) PO DAILY #14 tabs 12/16/24
levofloxacin 750 mg tablet 750 mg PO DAILY #14 tabs 12/16/24
metronidazole 500 mg tablet 500 mg PO BID #28 tabs 12/16/24
polyethylene glycol 3350 17 gram oral powder packet 17 g PO DAILYPRN PRN constipation #30 ea 12/16/24
Home Medication Changes
2 weeks of antibiotics
Pending Results: No
[2024-12-16] MEDS: LOTRIMIN 1% CREAM TOPICAL (12:03)
[2024-12-16 12:56] VITALS: BP 131/51
--- NOTE | 2024-12-16 14:38 | W.PN.UPDATE ---
Update Note
Progress Note Update
chart reviewed
patient stable for dc from ID perspective, QTc is acceptable
plans unchanged:
Diverticulitis - persistent
Balanitis
Reported rash with ciprofloxacin
- this is patients first episode in my opinion with incomplete resolution of the symptoms from 11/24 on augmentin
- CT 12/10 no evidence of abscess
- agree with assessment of likely balanitis
- check QTc 450 on lexapro
- quinolones are unique in that rash with one doesn't reliably predict rash with others within the class
- trial of levaquin/metro/fluconazole tentatively x2 weeks
- QTc remains acceptable
- if no improvement in abdominal pain by saturday, I would like him to contact my office and then we would switch to IV therapy - he expressed understanding and agreement
- stable for dc from ID perspective and is discharged prior to my physically rounding on the patient
== END 2024-12-16 14:45 | disposition home or self-care (01) | DRG 392 ==
LOC: 1 ACUTE 16:42
PROVIDERS: Student in an Organized Health Care Education/Training Program; ADMITTING PHYSICIAN Hospitalist; ATTENDING PHYSICIAN Internal Medicine; CONSULT PHYSICIAN Student in an Organized Health Care Education/Training Program; EMERGENCY PHYSICIAN Emergency Medicine; FAMILY PHYSICIAN Internal Medicine
DX: K57.32 Diverticulitis of large intestine without perforation or abscess without bleeding (principal); N48.1 Balanitis; I10 Essential (primary) hypertension; E78.00 Pure hypercholesterolemia, unspecified; K21.9 Gastro-esophageal reflux disease without esophagitis; Z87.442 Personal history of urinary calculi; Z96.612 Presence of left artificial shoulder joint; Z79.82 Long term (current) use of aspirin; F41.9 Anxiety disorder, unspecified; F32.A Depression, unspecified; Z88.1 Allergy status to other antibiotic agents; Z86.0100 Personal history of colon polyps, unspecified; K76.0 Fatty (change of) liver, not elsewhere classified; L40.9 Psoriasis, unspecified; M19.90 Unspecified osteoarthritis, unspecified site; N40.0 Benign prostatic hyperplasia without lower urinary tract symptoms
CPT/HCPCS: 36415; 80053; 81003; 81015; 83036; 83690; 85025; 93005; 96365; 99285

== ENCOUNTER 2025-03-31 06:25 | Day surgery (SDC) | payer MEDICARE, SELFPAY | END 2025-03-31 15:50 | disposition home or self-care (01) | LOC: GI 06:25 | PROVIDERS: ATTENDING PHYSICIAN Specialist | DX: D12.0 Benign neoplasm of cecum (principal); K57.32 Diverticulitis of large intestine without perforation or abscess without bleeding; K57.30 Diverticulosis of large intestine without perforation or abscess without bleeding; K64.8 Other hemorrhoids; R93.3 Abnormal findings on diagnostic imaging of other parts of digestive tract; K63.5 Polyp of colon | CPT/HCPCS: 45380; 88305 ==

== ENCOUNTER → 2025-04-09 11:27 | Outpatient (REF) | payer MEDICARE, SELFPAY ==
[2025-04-09 14:14] LABS: Hematocrit 44.8 % (39.0-52.0); Hemoglobin 15.1 g/dL (13.0-18.0); Mean Corp Hgb Conc. 33.7 g/dL (33.0-37.0); Mean Corpuscular Volume 92.4 fL (80.0-94.0); Nucleated Red Blood Cells % 0 % (-); Platelet Count 235 10^3/uL (130-400); Red Cell Dist. Width 13.7 % (11.5-14.5)
[2025-04-09 14:35] LABS: ALT (SGPT) 34 U/L (0-50); AST (SGOT) 17 U/L (17-59); Albumin 3.9 g/dl (3.5-5.0); Alkaline Phosphatase 59 U/L (38-126); Blood Urea Nitrogen 19 mg/dl (9-20); Calcium 8.6 mg/dl (8.4-10.2); Carbon Dioxide 33 mmol/L (22-30); Chloride 102 mmol/L (98-107); Glucose 73 mg/dl (70-99); HDL Cholesterol 73 mg/dl; LDL Cholesterol, Calculated 64 mg/dl; Potassium 4.3 mmol/L (3.5-5.1); Sodium 138 mmol/L (135-145); Total Protein 6.3 g/dl (6.3-8.2); Very Low Density Lipoprotein 8 mg/dl (0-30); eGFR > 60.00
== END ==
LOC: RAD 11:27
PROVIDERS: ATTENDING PHYSICIAN Internal Medicine
DX: I10 Essential (primary) hypertension (principal); E78.2 Mixed hyperlipidemia
CPT/HCPCS: 36415; 80053; 80061; 85025